=== PATIENT | female | born 1975 | race Caucasian/White ===

== ENCOUNTER 2016-08-13 06:23 | Outpatient (CLI) | payer BC ==
[~2016-08-13] VITALS: Ht 165.1 cm; Wt 53.8 kg
[2016-08-13] VITALS (9 sets, daily range): BP systolic 93–113; BP diastolic 55–70; PULSE 50–83; TEMP 97.5–98.1
[~2016-08-13 06:23] MED LIST: PRENATAL VITAMI1 TA5 PO; [UNRECOGNIZED DRUG - REMARK]
[2016-08-13] MEDS ORDERED: ADVIL200 MG PO (06:43)
[2016-08-13] MEDS ORDERED: DOXYCYCLINE 10100 MG PO (13:30)
== END 2016-08-13 13:35 | disposition home or self-care (01) ==
LOC: COL.VAS 06:23
DX: I86.8 Varicose veins of other specified sites (principal); M79.604 Pain in right leg; R22.41 Localized swelling, mass and lump, right lower limb
CPT/HCPCS: C1887; C1894; J2250; J3010; J3370; J7050; J7120

== ENCOUNTER → 2016-08-20 | Outpatient (CLI) | payer BC ==
[2006-03-03 09:20] VITALS: PULSE 82; TEMP 97.2
[~2016-08-20] MED LIST changes: +ADVIL200 MG PO; +DOXYCYCLINE 10100 MG PO
== END ==
LOC: COL.VAS 07:58
DX: Z09 Encounter for follow-up examination after completed treatment for conditions other than malignant neoplasm (principal)

== ENCOUNTER → 2016-12-26 | Outpatient (CLI) | payer BC ==
[2006-03-03 09:20] VITALS: PULSE 82; TEMP 97.2
== END ==
LOC: MC.RAD 13:51
DX: N63 Unspecified lump in breast (principal)

== ENCOUNTER → 2018-11-27 | Outpatient (CLI) | payer BC ==
[2006-03-03 09:20] VITALS: PULSE 82; TEMP 97.2
== END ==
LOC: MC.RAD 14:15
DX: Z12.31 Encounter for screening mammogram for malignant neoplasm of breast (principal)